=== PATIENT | female | born 1930 | race Caucasian/White ===

== ENCOUNTER 2016-05-14 12:48 | Outpatient (CLI) | payer MEDICARE ==
[2016-05-14 13:45] LABS: Prothrombin Time 25.5 SEC (12.0-14.7)
== END 2016-05-14 12:49 | disposition home or self-care (01) ==
LOC: NAVSJIPCSP 12:48
PROVIDERS: ATTEND Internal Medicine
DX: Z51.81 Encounter for therapeutic drug level monitoring (principal); Z79.01 Long term (current) use of anticoagulants
CPT/HCPCS: 36415; 85610

== ENCOUNTER 2016-06-09 11:26 | Outpatient (CLI) | payer MEDICARE ==
[2016-06-09 13:17] LABS: Prothrombin Time 27.8 SEC (12.0-14.7)
== END 2016-06-09 11:27 | disposition home or self-care (01) ==
LOC: NAVSJIPCSP 11:26
PROVIDERS: ATTEND Internal Medicine
DX: Z51.81 Encounter for therapeutic drug level monitoring (principal); Z79.01 Long term (current) use of anticoagulants
CPT/HCPCS: 36415; 85610

== ENCOUNTER 2016-07-05 08:48 | Outpatient (CLI) | payer MEDICARE ==
[2016-07-05 12:28] LABS: #Eosinphils 0.1 thou/uL (0.0-0.7); #Lymphocytes 1.2 thou/uL (1.20-3.40); #Monocytes 0.5 thou/uL (0.11-0.59); #Neutrophils 5.4 thou/uL (1.40-6.50); %Basophils 0.6 % (0.0-1.0); %Eosinophils 1.8 % (0.0-10.0); %Lymphocytes 16.1 % (21.0-51.0); %Monocytes 6.2 % (0.0-10.0); Hematocrit 45.5 % (36.0-47.0); Mean Platelet Volume 5.9 fL (7.4-10.4); Red Blood Cell (RBC) Count 4.89 mill/uL (4.20-5.40); White Blood Cell (WBC) Count 7.2 thou/uL (4.8-10.8)
[2016-07-05 12:46] LABS: Prothrombin Time 30.3 SEC (12.0-14.7)
[2016-07-05 12:51] LABS: ALT (SGPT) 19 U/L (0-55); AST (SGOT) 25 U/L (5-34); Alkaline Phosphatase 110 U/L (40-150); Anion Gap 15 mmol/L (10-20); BUN (Urea Nitrogen) 18 mg/dL (9.8-20.1); Bilirubin, Total 1.3 mg/dL (0.2-1.2); Calc. Creatinine Clearance 0 mL/min (70-130); Calcium 9.8 mg/dL (7.8-10.44); Carbon Dioxide 27 mmol/L (23-31); Chloride 102 mmol/L (98-107); Estimated GFR-MDRD 70; Globulin 3.2 g/dL (2.4-3.5); LDL Cholesterol, Calculated 124 mg/dL; Protein, Total 7.6 g/dL (5.8-8.1)
[2016-07-05 13:27] LABS: Bilirubin Negative (Negative); Blood, Urine Trace (Negative); Glucose, Urine (Dipstick) Negative (Negative); Ketone, Urine Negative (Negative); Nitrite Negative (Negative); Protein, Urine (Dipstick) Negative (Neg-Trace); Urobilinogen 0.2 mg/dL (0.2-1.0)
[2016-07-05 13:55] LABS: Bacteria/HPF Rare-Few HPF (None Seen); Squamous Epithelial 0-3 HPF (0-3); WBC/HPF 0-3 HPF (0-3)
== END 2016-07-05 08:49 | disposition home or self-care (01) ==
LOC: NAVSJIPCSP 08:48
PROVIDERS: ATTEND Internal Medicine
DX: I11.9 Hypertensive heart disease without heart failure (principal); J44.9 Chronic obstructive pulmonary disease, unspecified; I48.2 Chronic atrial fibrillation; K21.9 Gastro-esophageal reflux disease without esophagitis; R31.9 Hematuria, unspecified
CPT/HCPCS: 36415; 80053; 80061; 81001; 85025; 85610

== ENCOUNTER 2016-07-19 13:20 | Outpatient (CLI) | payer MEDICARE ==
[2016-07-19 13:50] LABS: INR-International Normal Ratio 2.6
== END 2016-07-19 13:21 | disposition home or self-care (01) ==
LOC: NAVSJIPCSP 13:20
PROVIDERS: ATTEND Internal Medicine
DX: Z51.81 Encounter for therapeutic drug level monitoring (principal); Z79.01 Long term (current) use of anticoagulants
CPT/HCPCS: 36415; 85610

== ENCOUNTER 2016-08-19 12:13 | Outpatient (CLI) | payer MEDICARE ==
[2016-08-19 14:17] LABS: Prothrombin Time 48.3 SEC (12.0-14.7)
[2016-08-19 14:18] LABS: INR-International Normal Ratio 4.9
== END 2016-08-19 12:14 | disposition home or self-care (01) ==
LOC: NAVSJIPCSP 12:13
PROVIDERS: ATTEND Internal Medicine
DX: Z51.81 Encounter for therapeutic drug level monitoring (principal); Z79.01 Long term (current) use of anticoagulants
CPT/HCPCS: 36415; 85610

== ENCOUNTER 2016-08-23 15:24 | Outpatient (CLI) | payer MEDICARE ==
[2016-08-23 20:47] LABS: INR-International Normal Ratio 3.4
== END 2016-08-23 15:25 | disposition home or self-care (01) ==
LOC: NAVSJIPCSP 15:24
PROVIDERS: ATTEND Internal Medicine
DX: Z51.81 Encounter for therapeutic drug level monitoring (principal); Z79.01 Long term (current) use of anticoagulants
CPT/HCPCS: 85610

== ENCOUNTER 2016-08-26 12:25 | Outpatient (CLI) | payer MEDICARE ==
[2016-08-26 13:24] LABS: INR-International Normal Ratio 2.1; Prothrombin Time 24.3 SEC (12.0-14.7)
== END 2016-08-26 12:26 | disposition home or self-care (01) ==
LOC: NAVSJIPCSP 12:25
PROVIDERS: ATTEND Internal Medicine
DX: Z51.81 Encounter for therapeutic drug level monitoring (principal); Z79.01 Long term (current) use of anticoagulants
CPT/HCPCS: 36415; 85610

== ENCOUNTER 2016-09-08 10:48 | Outpatient (CLI) | payer MEDICARE ==
[2016-09-08 13:22] LABS: Cardiac Risk 3.4 (Less than 4.5)
[2016-09-08 13:23] LABS: INR-International Normal Ratio 2.7; Prothrombin Time 29.7 SEC (12.0-14.7)
== END 2016-09-08 10:49 | disposition home or self-care (01) ==
LOC: NAVSJIPCSP 10:48
PROVIDERS: ATTEND Internal Medicine
DX: E78.5 Hyperlipidemia, unspecified (principal); I48.2 Chronic atrial fibrillation; Z79.01 Long term (current) use of anticoagulants; Z79.899 Other long term (current) drug therapy
CPT/HCPCS: 36415; 80061; 85610

== ENCOUNTER 2016-10-11 10:52 | Outpatient (CLI) | payer MEDICARE ==
[2016-10-11 12:39] LABS: INR-International Normal Ratio 3.1; Prothrombin Time 33.5 SEC (12.0-14.7)
== END 2016-10-11 10:53 | disposition home or self-care (01) ==
LOC: NAVSJIPCSP 10:52
PROVIDERS: ATTEND Internal Medicine
DX: Z79.01 Long term (current) use of anticoagulants (principal); Z51.81 Encounter for therapeutic drug level monitoring
CPT/HCPCS: 36415; 85610

== ENCOUNTER 2016-10-25 12:20 | Outpatient (CLI) | payer MEDICARE ==
[2016-10-25 19:05] LABS: INR-International Normal Ratio 2.9
== END 2016-10-25 12:21 | disposition home or self-care (01) ==
LOC: NAV LABSP 12:20
PROVIDERS: ATTEND Internal Medicine
DX: Z51.81 Encounter for therapeutic drug level monitoring (principal); Z79.01 Long term (current) use of anticoagulants
CPT/HCPCS: 85610

== ENCOUNTER 2016-11-22 09:49 | Outpatient (CLI) | payer MEDICARE ==
[2016-11-22 13:53] LABS: Bilirubin Negative (Negative); Blood, Urine Trace (Negative); Clarity Clear (Clear); Glucose, Urine (Dipstick) Negative (Negative); Leukocyte Large (Negative); Nitrite Negative (Negative); Protein, Urine (Dipstick) Negative (Neg-Trace); Specific Gravity, Urine 1.015 (1.005-1.030); Urobilinogen 0.2 mg/dL (0.2-1.0); pH, Urine 6.5 (5.0-9.0)
[2016-11-22 14:34] LABS: INR-International Normal Ratio 2.7; Prothrombin Time 30.1 SEC (12.0-14.7)
[2016-11-22 19:42] LABS: Bacteria/HPF None Seen HPF (None Seen); RBC/HPF 0-3 HPF (0-3); Squamous Epithelial 0-3 HPF (0-3)
== END 2016-11-22 09:50 | disposition home or self-care (01) ==
LOC: NAVSJIPCSP 09:49
PROVIDERS: ATTEND Internal Medicine
DX: R30.0 Dysuria (principal)
CPT/HCPCS: 36415; 81003; 81015; 85610; 87086

== ENCOUNTER 2016-11-22 11:29 | Outpatient (CLI) | payer MEDICARE | END 2016-11-22 11:30 | disposition home or self-care (01) | LOC: NAVSJIPCSP 11:29 | PROVIDERS: ATTEND Internal Medicine | DX: Z51.81 Encounter for therapeutic drug level monitoring (principal); Z79.01 Long term (current) use of anticoagulants ==

== ENCOUNTER 2016-12-30 10:03 | Outpatient (CLI) | payer MEDICARE ==
[2016-12-30 12:17] LABS: #Eosinphils 0.2 thou/uL (0.0-0.7); #Lymphocytes 0.9 thou/uL (1.20-3.40); #Monocytes 0.5 thou/uL (0.11-0.59); #Neutrophils 5.2 thou/uL (1.40-6.50); %Basophils 0.7 % (0.0-1.0); %Eosinophils 2.4 % (0.0-10.0); %Monocytes 7.7 % (0.0-10.0); %Neutrophils 76.3 % (42.0-75.0); Hemoglobin 13.3 g/dL (12.0-16.0); Mean Corpuscular HGB CONC 32.5 g/dL (32.0-36.0); Mean Corpuscular Hemoglobin 29.8 pg (27.0-31.0); Mean Corpuscular Volume 91.6 fl (81.0-99.0); Mean Platelet Volume 6.3 fL (7.4-10.4); Platelet Count 326 thou/uL (130-400); RBC Distribution Width 11.9 % (11.5-14.5); Red Blood Cell (RBC) Count 4.45 mill/uL (4.20-5.40); White Blood Cell (WBC) Count 6.8 thou/uL (4.8-10.8)
[2016-12-30 13:00] LABS: ALT (SGPT) 18 U/L (8-55); AST (SGOT) 27 U/L (5-34); Albumin 3.9 g/dL (3.4-4.8); Alkaline Phosphatase 98 U/L (40-150); Anion Gap 18 mmol/L (10-20); BUN (Urea Nitrogen) 17 mg/dL (9.8-20.1); Calc. Creatinine Clearance 0 mL/min (70-130); Calcium 9.5 mg/dL (7.8-10.44); Carbon Dioxide 20 mmol/L (23-31); Cardiac Risk 3.8 (Less than 4.5); Chloride 104 mmol/L (98-107); Cholesterol 180 mg/dl (< 200 Desired); Estimated GFR-MDRD 73; Globulin 3.4 g/dL (2.4-3.5); Glucose 87 mg/dL (83-110); HDL Cholesterol 47 mg/dL (>60 Neg Risk); LDL Cholesterol, Calculated 110 mg/dL; Potassium 4.8 mmol/L (3.5-5.1); Protein, Total 7.3 g/dL (6.0-8.3); Sodium 137 mmol/L (136-145); Triglycerides 115 mg/dL (Less than 150)
[2016-12-30 13:43] LABS: Bilirubin Negative (Negative); Blood, Urine Small (Negative); Clarity Clear (Clear); Glucose, Urine (Dipstick) Negative (Negative); Leukocyte Small (Negative); Nitrite Negative (Negative); Protein, Urine (Dipstick) Negative (Neg-Trace); Urobilinogen 0.2 mg/dL (0.2-1.0)
[2016-12-30 13:56] LABS: Bacteria/HPF Rare-Few HPF (None Seen)
[2016-12-30 14:10] LABS: INR-International Normal Ratio 2.4; Prothrombin Time 27.1 SEC (12.0-14.7)
== END 2016-12-30 10:04 | disposition home or self-care (01) ==
LOC: NAVSJIPCSP 10:03
PROVIDERS: ATTEND Internal Medicine
DX: I11.9 Hypertensive heart disease without heart failure (principal); R31.9 Hematuria, unspecified; K21.9 Gastro-esophageal reflux disease without esophagitis; I48.2 Chronic atrial fibrillation
CPT/HCPCS: 36415; 80053; 80061; 81003; 81015; 85025; 85610

== ENCOUNTER 2017-02-05 12:15 | Emergency (ER) | payer MEDICARE ==
[2017-02-05] MEDS ORDERED: Ondansetron ODT 4 MG TAB ONE ×2 (13:06→13:08)
[2017-02-05] MEDS ORDERED: Ondansetron HCl/PF 4 MG/2 ML Vial ONE (14:00)
[2017-02-05 14:04] LABS: #Basophils 0.1 thou/uL (0.0-0.2); #Lymphocytes 1.3 thou/uL (1.20-3.40); #Monocytes 0.3 thou/uL (0.11-0.59); %Basophils 0.9 % (0.0-1.0); %Eosinophils 0.8 % (0.0-10.0); %Lymphocytes 22.3 % (21.0-51.0); %Monocytes 4.4 % (0.0-10.0); %Neutrophils 71.5 % (42.0-75.0); Hemoglobin 13.3 g/dL (12.0-16.0); Mean Corpuscular HGB CONC 31.9 g/dL (32.0-36.0); Mean Corpuscular Hemoglobin 30.3 pg (27.0-31.0); Mean Corpuscular Volume 95.1 fl (81.0-99.0); Mean Platelet Volume 6.2 fL (7.4-10.4); Platelet Count 378 thou/uL (130-400); RBC Distribution Width 11.8 % (11.5-14.5); Red Blood Cell (RBC) Count 4.39 mill/uL (4.20-5.40); White Blood Cell (WBC) Count 5.7 thou/uL (4.8-10.8)
[2017-02-05 14:15] LABS: ALT (SGPT) 22 U/L (8-55); AST (SGOT) 32 U/L (5-34); Albumin 3.9 g/dL (3.4-4.8); Alkaline Phosphatase 136 U/L (40-150); Anion Gap 17 mmol/L (10-20); BUN (Urea Nitrogen) 24 mg/dL (9.8-20.1); Calc. Creatinine Clearance 0 mL/min (70-130); Calcium 9.9 mg/dL (7.8-10.44); Carbon Dioxide 21 mmol/L (23-31); Chloride 99 mmol/L (98-107); Estimated GFR-MDRD 62; Globulin 3.4 g/dL (2.4-3.5); Glucose 124 mg/dL (83-110); Potassium 4.8 mmol/L (3.5-5.1); Protein, Total 7.3 g/dL (6.0-8.3); Sodium 132 mmol/L (136-145)
[2017-02-05 14:18] LABS: CKMB 3.2 ng/mL (0-6.6); INR-International Normal Ratio 2.7; PTT 40.5 SEC (22.9-36.1); Prothrombin Time 29.8 SEC (12.0-14.7); Troponin I 0.017 ng/mL (< 0.028)
== END 2017-02-05 14:38 | disposition home or self-care (01) ==
LOC: NAV ERS 12:15
DX: K59.00 Constipation, unspecified (principal); I95.89 Other hypotension; I48.91 Unspecified atrial fibrillation; I10 Essential (primary) hypertension; Z79.01 Long term (current) use of anticoagulants; Z79.899 Other long term (current) drug therapy
CPT/HCPCS: 80053; 82553; 84484; 85025; 85610; 85730; 93005; 94760; 96361; 96374; J2405; Q0162

== ENCOUNTER 2017-02-07 13:00 | Outpatient (CLI) | payer MEDICARE ==
--- NOTE | 2017-02-07 19:47 | RAD ---
THREE VIEWS LUMBAR SPINE: Date: 02-07-17 History: Fall one week ago. Patient now has low back pain. FINDINGS: There are five non-rib bearing lumbar type vertebral bodies. Multilevel degenerative changes are see n in the lumbar spine. There is mild retrolisthesis of L2 on L3 with grade I anterolisthesis of L4 o n L5 with minimal grade I anterolisthesis of L5 on S1. There is narrowing of the intervertebral disc spaces at multiple levels with multilevel osteophyte formation noted. There is a compression fracture of the T12 vertebral body with approximately 30-40% loss of height c entrally. The exact age of this compression fracture is unable to be determined based on this exam. This compression fracture is not present on a prior study in 2011. There is a peripherally calcified mass like structure seen in a left retroperitoneal location. Prior CT scan of the abdomen on 09-24-05 demonstrated a peripherally calcified cystic mass. Vascular calcifications seen involving the abdominal aorta and involving the iliac arteries. There i s gaseous distention of loops of bowel. IMPRESSION: 1. Compression fracture of T12 vertebral body of indeterminate age. 2. Multilevel degenerative changes. There is slight retrolisthesis of L2 on L3 with grade I anteroli sthesis of L3 on L4 and a greater degree of grade I anterolisthesis of L4 on L5. There may be trace anterolisthesis of L5 on S1. 3. Peripherally calcified mass retroperitoneal location left upper quadrant seen on prior CT abdomen . 4. Vascular calcifications. POS: [facility]
== END 2017-02-07 13:01 | disposition home or self-care (01) ==
LOC: NAV ULT 13:00 → NAV RAD 13:01
PROVIDERS: ATTEND Internal Medicine
DX: M54.5 Low back pain (principal); S22.080A Wedge compression fracture of T11-T12 vertebra, initial encounter for closed fracture; M47.816 Spondylosis without myelopathy or radiculopathy, lumbar region; M51.86 Other intervertebral disc disorders, lumbar region; M43.16 Spondylolisthesis, lumbar region
CPT/HCPCS: 72100